=== PATIENT | female | born 1960 | race American Indian/Alaskan Native ===

== ENCOUNTER 2021-02-05 11:48 | Outpatient (CLI) | payer OTHER ==
--- NOTE | 2021-02-05 13:46 | XRay Report ---
LUMBOSACRAL SPINE 3 VIEWS INDICATION: Back pain. COMPARISON: None. IMPRESSION: 5 mm anterolisthesis of L4 with respect to L5 is evident. The remaining vertebra are nor mal in alignment. Moderate multilevel degenerative disc disease and facet arthropathy are identified . No acute osseous or soft tissue abnormality. RIGHT KNEE 3 VIEWS INDICATION: RIGHT KNEE PAIN. COMPARISON: None. IMPRESSION: No acute osseous or soft tissue abnormality. Moderate medial compartment joint space narrowing and mild patellofemoral joint space narrowing is noted. Trace joint effusion is suspected o n the lateral image. Signer Name: Ubaldo Nichols Jr, MD Signed: 02/05/2021 1:42 PM Workstation Name: [id number]
== END 2021-02-05 11:49 | disposition home or self-care (01) ==
LOC: XRAY 11:48
PROVIDERS: ATTEND Internal Medicine
DX: M17.11 Unilateral primary osteoarthritis, right knee (principal); M47.816 Spondylosis without myelopathy or radiculopathy, lumbar region
CPT/HCPCS: 72100

== ENCOUNTER 2021-03-24 09:17 | Emergency (ER) | payer MEDICAID, OTHER ==
[2021-03-24 09:35] VITALS: BP 137/109
--- NOTE | 2021-03-24 09:37 | Event Note ---
ED Screening Note Date of service: 03/24/21 Time: 09:36 ED Screening Note: Patient complains of right buttock pain radiating down her right leg x2 days, shortness of breath x3 weeks, and right hand pain x1 month History of hypertension Denies chest pain Patient is a non-smoker Leg pain is burning No injuries to right hand or repetitive motions per patient This initial assessment/diagnostic orders/clinical plan/treatment(s) is/are subject to change based on patients health status, clinical progression and re- assessment by fellow clinical providers in the ED. Further treatment and workup at subsequent clinical providers discretion. Patient/guardian urged not to elope from the ED as their condition may be serious if not clinically assessed and managed. Initial orders include: Labs EKG Chest x-ray
--- NOTE | 2021-03-24 10:02 | XRay Report ---
CHEST 2 VIEWS INDICATION / CLINICAL INFORMATION: shortness of breath. COMPARISON: None available. FINDINGS: SUPPORT DEVICES: None. HEART / MEDIASTINUM: No significant abnormality. LUNGS / PLEURA: No significant pulmonary or pleural abnormality. No pneumothorax. ADDITIONAL FINDINGS: No significant additional findings. IMPRESSION: 1. No acute findings. Signer Name: Cordell Michaud MD Signed: 03/24/2021 9:58 AM Workstation Name: [id number]
--- NOTE | 2021-03-24 10:04 | XRay Report ---
XR hand 3+V RT INDICATION / CLINICAL INFORMATION: Right hand pain. COMPARISON: None available. FINDINGS: BONES/JOINT(S): No acute fracture or subluxation. Mild DJD throughout the interphalangeal joints. SOFT TISSUES: No significant abnormality. ADDITIONAL FINDINGS: None. Signer Name: Cordell Michaud MD Signed: 03/24/2021 9:59 AM Workstation Name: [employer]
[2021-03-24 10:51] LABS: Basophils # (Auto) 0.1 K/mm3 (0.0-0.1); Basophils % (Auto) 0.9 % (0.0-1.8); Eosinophils # (Auto) 0.2 K/mm3 (0.0-0.4); Hematocrit 40.6 % (30.3-42.9); Hemoglobin 13.9 gm/dl (10.1-14.3); Lymphocytes % (Auto) 25.1 % (13.4-35.0); Mean Corpuscular HGB Conc 34 % (30-34); Mean Corpuscular Volume 91 fl (79-97); Monocytes # (Auto) 0.6 K/mm3 (0.0-0.8); Monocytes % (Auto) 7.2 % (0.0-7.3); Platelet Count 272 K/mm3 (140-440); Red Blood Count 4.45 M/mm3 (3.65-5.03); Red Cell Distribution Width 14.4 % (13.2-15.2)
[2021-03-24 12:05] LABS: Alanine Aminotransferase 23 units/L (7-56); Albumin 4.3 g/dL (3.9-5); BUN/Creatinine Ratio 21; Blood Urea Nitrogen 17 mg/dL (7-17); Calcium 9.5 mg/dL (8.4-10.2); Hemolysis Index 11
--- NOTE | 2021-03-26 17:19 | Electrocardiograph Report ---
[facility] Test Date: 2021-03-24 Test Time: 09:55:49 Pat Name: JC CHESTER Department: Room: Gender: F Administration Assistant: MAYELIN : 1960 Requested By: TANESHA CASTILLO Order Number: [id number] Reading MD: Gordy Duarte Measurements Intervals [place] Rate: 73 P: 43 CT: 153 QRS: -38 QRSD: 108 T: 29 QT: 439 QTc: 482 Interpretive Statements Sinus rhythm Probable left atrial enlargement Left axis deviation Incomplete RBBB. No previous ECG available for comparison Electronically Signed On 03-26-2021 17:18:57 EDT by Gordy Duarte
== END 2021-03-24 13:30 ==
LOC: ED 09:17
DX: M79.89 Other specified soft tissue disorders (principal); Z53.21 Procedure and treatment not carried out due to patient leaving prior to being seen by health care provider
CPT/HCPCS: 36415; 71046; 80053; 83880; 84484; 85025; 93005

== ENCOUNTER 2021-06-10 08:58 | Emergency (ER) | payer MEDICAID ==
--- NOTE | 2021-06-10 10:20 | Emergency Department Report ---
HPI - General Chief Complaint: Pain General Time Seen by Provider: 06/10/21 09:41 - HPI HPI: 60-year-old female with only history being hypertension presents complaining of right knee, hand, and right lower back pain for the past 2 months. She says the pain has been worsening over the last 3 weeks. She has not seen a doctor for it. She says the pain tends to be worse in the morning, or when she is at rest and has not moved around much. She says after waking up she feels extremely stiff and after moving around for a while the pain gets slightly better. She has been taking Advil intermittently for the pain but only temporary relief. She denies any associated fever/chills, headache, vision change, neck pain, chest pain, shortness of breath, george pain, focal weakness, sensory changes, calf/lower extremity swelling, or any other complaints. She denies saddle anesthesia, bowel/bladder incontinence, or any other neurologic symptoms. She denies any recent trauma. ED Past Medical Hx - Past Medical History Hx Hypertension: Yes - Surgical History Past Surgical History?: No - Social History Smoking Status: Never Smoker Substance Use Type: None - Medications Home Medications: Home Medications Medication Instructions Recorded Confirmed Last Taken Type Hydrochlorothiazide 25 mg PO DAILY 06/10/21 06/10/21 06/10/21 History Ibuprofen [Motrin 600 MG tab] 600 mg PO Q8H PRN #20 tablet 06/10/21 Unknown Rx amLODIPine 10 mg PO DAILY 06/10/21 06/10/21 06/10/21 History ED Review of Systems ROS: Stated complaint: RIGHT KNEE SWOLLEN, BACK PAIN Other details as noted in HPI Constitutional: denies: chills, fever Eyes: denies: eye pain, vision change ENT: denies: throat pain, congestion Respiratory: denies: cough, shortness of breath Cardiovascular: denies: chest pain, palpitations Gastrointestinal: denies: abdominal pain, nausea, vomiting, diarrhea Genitourinary: denies: dysuria, frequency Musculoskeletal: back pain, arthralgia Skin: denies: rash, change in color Neurological: denies: headache, weakness, numbness Physical Exam - Physical Exam Vital Signs: Vital Signs 06/10/21 06/10/21 06/10/21 09:34 09:51 10:01 Temperature Pulse Rate 74 77 Respiratory 12 14 Rate Blood Pressure 124/85 Blood Pressure 108/70 [Right] O2 Sat by Pulse 99 99 Oximetry 06/10/21 10:08 Temperature 98.3 F Pulse Rate Respiratory Rate Blood Pressure Blood Pressure [Right] O2 Sat by Pulse Oximetry Physical Exam: GENERAL: Well developed and well nourished. No acute distress HEAD: Normocephalic. No obvious signs of trauma. ENT: Moist mucous membranes. EYES: Extraocular movements are intact. Pupils are equal round and reactive to light bilaterally NECK: Supple. Full ROM is intact. Trachea is midline. LUNGS: Nonlabored breathing. Equal chest rise bilaterally. Clear to auscultation bilaterally. CARDIOVASCULAR: Regular rate and rhythm. No murmurs or rubs. VASCULAR: Cap refill < 2 seconds ABDOMEN: Abdomen is soft and nondistended. There is no significant tenderness, guarding or rebound. SKIN: Skin is warm and dry NEURO: Patient is awake, alert, and oriented. 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 No focal deficits. Normal motor and sensory exam throughout. Normal speech. MUSCULOSKELETAL: No obvious deformities. There is mild swelling noted to the dorsum of the right hand. Although the patient has pain with range of motion of the fingers of the right hand she is able to range all of them appropriately. Able to make a fist and an okay sign without difficulty. The left hand is within normal limits. The right knee has full range of motion and there is no anterior/posterior or varus/valgus laxity. There is no appreciable joint effusion, although there might be some swelling compared to the left knee. The left knee is within normal limits. BACK/SPINE: No midline tenderness or step-offs of the C/T spine. There may be some slight midline tenderness of the lumbar spine but there is primarily right- sided paraspinous muscle tenderness. There is no CVA tenderness. ED Course Vital Signs 06/10/21 06/10/21 06/10/21 09:34 09:51 10:01 Temperature Pulse Rate 74 77 Respiratory 12 14 Rate Blood Pressure 124/85 Blood Pressure 108/70 [Right] O2 Sat by Pulse 99 99 Oximetry 06/10/21 10:08 Temperature 98.3 F Pulse Rate Respiratory Rate Blood Pressure Blood Pressure [Right] O2 Sat by Pulse Oximetry ED Medical Decision Making - Radiology Data RIGHT HAND 2 VIEWS INDICATION: pain and swelling. COMPARISON: None. IMPRESSION: No acute osseous or soft tissue abnormality. No significant DJD. RIGHT KNEE 3 VIEWS INDICATION: pain and swelling. COMPARISON: None. IMPRESSION: No acute osseous or soft tissue abnormality. Moderate osteoarthritic changes are noted in the medial compartment and patellofemoral compartment. Moderate tibial spine spurring. A small joint effusion is suspected on the lateral image. Signer Name: Ubaldo Nichols Jr, MD Signed: 06/10/2021 10:37 AM Workstation Name: [id number] CT LUMBAR SPINE WITHOUT CONTRAST INDICATION: midline tend, LOWER BACK PAIN X 3 MONTHS. TECHNIQUE: Axial imaging performed through the lumbar without the use of contrast. Sagittal and coronal reconstructed images were also reviewed. All CT scans at this location are performed using CT dose reduction for ALARA by means of automated exposure control. COMPARISON: None FINDINGS: Alignment: 5 mm anterolisthesis of L4 with respect to L5 is noted on the sagittal images. The remaining lumbar vertebra are normal in alignment. Bones: There is no acute osseous abnormality. Mild disc space narrowing is identified at L2-3 and L4-5. Moderate facet arthropathy is identified at L2-3, L3-4 and L4-5. Mild to moderate bilateral neural foraminal narrowing is suspected at L4-5, the left side appears slightly more affected. No central canal stenosis is suspected on noncontrast CT. Soft tissues: No acute or significant incidental soft tissue abnormality. IMPRESSION: No acute abnormality. Mild to moderate lumbar spondylosis as described. Signer Name: Ubaldo Nichols Jr, MD Signed: 06/10 10:26 AM Workstation Name: [id number] - Medical Decision Making 60-year-old female presents complaining of 2 months of pain in multiple joints including the right hand, right knee, and low back especially on the right side. She is afebrile and with normal vitals. She reports that she has morning stiffness and that the pain gets better with activity. The patient has no abdominal pain or diarrhea and no dysuria/back pain. On exam she has no CVA tenderness and no abdominal tenderness. She does have some mild swelling noted to the right dorsum of the hand. Range of motion and strength is intact. The right knee shows normal range of motion and there is no appreciable or drainable effusion, although the patient has pain with active range of motion. She does not have pain with passive range of motion. There are no overlying skin changes and no warmth of any of the joints. Findings are most suspicious for an inflammatory arthritis which will require further work-up. Nevertheless, we will obtain plain film x-rays of the right hand and right knee. On exam the patient has some slight midline tenderness of the lumbar spine but it is primarily right paraspinous muscle tenderness. Nonetheless we will obtain CT of the L-spine to assess for evidence of fracture, or any other serious abnormalities. Given that the patient just took a medication containing ibuprofen we will give Tylenol. Imaging has returned and reveals some degenerative findings but no drainable effusions or other acute abnormalities. CT of the L-spine reveals no acute abnormalities. The patient reports that her pain has somewhat increased and therefore we will administer IV Toradol. I encouraged the patient to follow-up as an outpatient for further work-up given features suggestive of inflammatory arthritis. The patient states that she already has an appointment scheduled with a doctor from [facility] on June 22. I encouraged her to keep this appointment and to call for sooner appointment if possible. I advised the patient to take 600 mg of ibuprofen up to 3 times daily only with food and never on an empty stomach. The patient expressed understanding agreement with this plan of care. Critical care attestation.: If time is entered above; I have spent that time in minutes in the direct care of this critically ill patient, excluding procedure time. ED Disposition Clinical Impression: Arthritis, Right knee pain, Right hand pain, Low back pain Disposition: DC-01 TO HOME OR SELFCARE Is pt being admited?: No Condition: Stable Instructions: Acute Knee Pain, Adult, Chronic Knee Pain, Adult, [id number], Chronic Knee Pain, Adult, Joint Pain, Hand Pain Additional Instructions: Return to the emergency department should you develop high fevers, worsening symptoms, or any other new concerns. Prescriptions: Ibuprofen [Motrin 600 MG tab] 600 mg PO Q8H PRN #20 tablet PRN Reason: Pain Referrals: [facility] [Provider Group] - 3-5 Days
--- NOTE | 2021-06-10 11:30 | Cat Scan Report ---
CT LUMBAR SPINE WITHOUT CONTRAST INDICATION: midline tend, LOWER BACK PAIN X 3 MONTHS. TECHNIQUE: Axial imaging performed through the lumbar without the use of contrast. Sagittal and cor onal reconstructed images were also reviewed. All CT scans at this location are performed using CT d ose reduction for ALARA by means of automated exposure control. COMPARISON: None FINDINGS: Alignment: 5 mm anterolisthesis of L4 with respect to L5 is noted on the sagittal images. The remain ing lumbar vertebra are normal in alignment. Bones: There is no acute osseous abnormality. Mild disc space narrowing is identified at L2-3 and L 4-5. Moderate facet arthropathy is identified at L2-3, L3-4 and L4-5. Mild to moderate bilateral neur al foraminal narrowing is suspected at L4-5, the left side appears slightly more affected. No central canal stenosis is suspected on noncontrast CT. Soft tissues: No acute or significant incidental soft tissue abnormality. IMPRESSION: No acute abnormality. Mild to moderate lumbar spondylosis as described. Signer Name: Ubaldo Nichols Jr, MD Signed: 06/10/2021 11:26 AM Workstation Name: [id number]
[2021-06-10 11:37] VITALS: BP 121/75
--- NOTE | 2021-06-10 11:41 | XRay Report ---
RIGHT HAND 2 VIEWS INDICATION: pain and swelling. COMPARISON: None. IMPRESSION: No acute osseous or soft tissue abnormality. No significant DJD. RIGHT KNEE 3 VIEWS INDICATION: pain and swelling. COMPARISON: None. IMPRESSION: No acute osseous or soft tissue abnormality. Moderate osteoarthritic changes are note d in the medial compartment and patellofemoral compartment. Moderate tibial spine spurring. A small j oint effusion is suspected on the lateral image. Signer Name: Ubaldo Nichols Jr, MD Signed: 06/10/2021 11:37 AM Workstation Name: [id number]
[2021-06-10] MEDS ORDERED: IBUPROFEN 600 MG TAB PO ONE (11:58)
== END 2021-06-10 12:30 | disposition home or self-care (01) ==
LOC: ED 08:58
DX: M17.11 Unilateral primary osteoarthritis, right knee (principal); M19.041 Primary osteoarthritis, right hand; M47.896 Other spondylosis, lumbar region; I10 Essential (primary) hypertension; Z79.1 Long term (current) use of non-steroidal anti-inflammatories (NSAID); Z79.899 Other long term (current) drug therapy
CPT/HCPCS: 72131